=== PATIENT | male | born 1945 | race Caucasian/White ===

== ENCOUNTER 2018-02-17 19:56 | Inpatient (IN) ==
[2018-02-17] MEDS ORDERED: IPRATROPIUM/ALBUTEROL 3 ML AMPUL.NEB NEB ONE ×2 (20:13→20:38)
[2018-02-17] MEDS ORDERED: ACETAMINOPHEN 325 MG TABLET PO ONE (22:13)
[2018-02-17] MEDS ORDERED: 0.9 % SODIUM CHLORIDE 1,000 ML IV ONE (22:24)
[2018-02-17 22:29] LABS: Basophils # (Auto) 0 K/mcL (0.0-0.3); Basophils % (Auto) 0.2 % (0.0-2.0); Eosinophils # (Auto) 0 K/mcL (0.0-0.7); Eosinophils % (Auto) 0.9 % (0.0-7.0); Granulocytes % (Auto) 67.8 % (38.0-78.0); Lymphocytes # (Auto) 1.1 K/mcL (1.5-4.8); Lymphocytes % (Auto) 20.5 % (15.5-49.0); Mean Cell Volume 86.6 fL (80.0-100.0); Mean Corpuscular HGB Conc 34.4 g/dL (31.0-36.0); Monocytes # (Auto) 0.6 K/mcL (0.1-0.9); Monocytes % (Auto) 10.6 % (1.0-12.0); Platelet Count 132 K/mcL (140-440); RBC 5.14 M/mcL (4.50-5.90); Red Cell Distribution Width 12.7 % (11.5-14.5)
[2018-02-17 22:47] LABS: ALT/SGPT 31 U/l (0-40); Albumin 4.4 gm/dL (3.2-5.2); Albumin/Globulin Ratio 1.5 (1.0-2.3); Alkaline Phosphatase 82 U/L (39-117); Blood Urea Nitrogen 15 mg/dl (8-23)
[2018-02-17] MEDS ORDERED: cefTRIAXone 1 GM VIAL IV ONE (23:52)
[2018-02-17] MEDS ORDERED: AZITHROMYCIN 500 MG in DEXTROSE 5% IN WATER 250 ML IV ONE (23:52)
--- NOTE | 2018-02-17 23:53 | Emergency Department Note ---
Fever HPI - General Chief Complaint: Fever Stated Complaint: fever Time Seen by Provider: 02/17/18 20:28 Source: patient Mode of arrival: wheelchair Limitations: no limitations - History of Present Illness HPI Narrative: This pleasant 72-year-old male developed fever and shortness of breath beginning yesterday. Temperature was up to 102.4 early this morning. He has had no exposure to influenza or upper respiratory infections that he is aware of. He has been wheezing quite severely yesterday and today. He has been coughing yesterday and today as well. He uses albuterol intermittently and occasionally but not even monthly. In the last day and a half he has been using it several times a day. REVIEW OF SYSTEMS: Denies sore throat, runny nose, chest pain, abdominal pain, nausea, vomiting, diarrhea, dysuria, anxiety, depression. - Related Data Home Medications Medication Instructions Recorded Confirmed Dutasteride [Avodart] 0.5 mg PO DAILY 02/02/16 01/31/18 Metoprolol Tartrate [Lopressor] 100 mg PO BID 02/02/16 01/31/18 Rosuvastatin Calcium [Crestor] 20 mg PO DAILY 02/02/16 01/31/18 Triamterene/Hydrochlorothiazid 1 each PO DAILY 02/02/16 01/31/18 [Triamterene-Hctz 50-25 mg Cap] amLODIPine/ATORVASTATIN 1 tab PO DAILY 02/02/16 01/31/18 [Amlodipine-Atorvast 10-40 mg] metFORMIN [Glucophage] 500 mg PO BIDCC 02/02/16 01/31/18 Potassium Citrate [Urocit-K] 5 meq PO BID 01/31/18 01/31/18 Allergies Allergy/AdvReac Type Severity Reaction Status Date / Time No Known Drug Allergies Allergy Verified 01/18/18 09:07 Fever PMH - Past Medical History [facility] Narrative: Medical History (Last Updated 02/17/18 @ 23:58 by Luiz French DO) History of urinary calculi (Chronic) Asthma (Chronic) Prediabetes (Chronic) Hyperlipidemia (Chronic) Hypertension, essential (Chronic) Obesity (BMI 30.0-34.9) (Chronic) Ankle fracture (Resolved) Medical history: Denies: cancer, CVA, DVT, hypothyroidism, myocardial infarction , pulmonary embolus, seizures, TIA Psychiatric history: Denies: anxiety, depression - Social History smoking status: Former smoker Alcohol use: Reports: Occasionally (Approximately once a week) Drug use: Reports: none. Denies: marijuana Physical Exam Limitations: no limitations General appearance: alert, in no apparent distress Head: atraumatic, normocephalic Eye: Present: normal appearance, EOMI. Absent: scleral icterus, conjunctival injection Neck: Present: trachea midline. Absent: lymphadenopathy, thyromegaly Chest: Present: symmetric chest wall rise Respiratory: Present: wheezes (Initially had polyphonic expiratory wheezes throughout all lung shell. After 2 doses of DuoNeb, wheezes were rare.). Absent: respiratory distress, stridor, accessory muscle use, prolonged expiratory phase Cardiovascular: Present: regular rate, normal rhythm. Absent: systolic murmur, diastolic murmur Abdominal: Present: soft. Absent: distention, tenderness, guarding, rebound, rigidity, organomegaly, mass Extremities: Absent: pedal edema, pretibial edema, calf tenderness Back: Absent: CVA tenderness (R), CVA tenderness (L), spinous process tenderness Neurological: Present: alert, oriented X3 Psychiatric: Present: normal affect, normal mood Skin: Present: warm, dry Course Course Narrative: 8:29 PM - with significant cough and fever, rule out pneumonia, influenza, etc. Labs and imaging. Vital Signs Temperature 100.4 F H 02/17/18 19:56 Pulse Rate 98 H 02/17/18 19:56 Respiratory Rate 18 02/17/18 19:56 Blood Pressure 177/81 02/17/18 19:56 Pulse Oximetry (%) 95 02/17/18 19:56 Temperature 103.1 F H 02/17/18 22:25 Pulse Rate 101 H 02/17/18 21:37 Respiratory Rate 18 02/17/18 19:56 Blood Pressure 181/85 02/17/18 21:37 Pulse Oximetry (%) 90 02/17/18 21:37 Fever - Lab Data Lab results reviewed: Yes I reviewed the patient's lab results. Result diagrams: 02/17/18 21:10 02/17/18 21:10 Lab Results 02/17/18 02/17/18 02/17/18 Range/Units 21:10 21:10 21:10 WBC 5.5 (4.5-11.0) K/mcL RBC 5.14 (4.50-5.90) M/mcL Hgb 15.3 (13.5-16.5) g/dL Hct 44.5 (41.0-55.0) % MCV 86.6 (80.0-100.0) fL MCH 29.8 (26.0-34.0) pg MCHC 34.4 (31.0-36.0) g/dL RDW 12.7 (11.5-14.5) % Plt Count 132 L (140-440) K/mcL MPV 9.2 (7.4-10.4) fL Gran % 67.8 (38.0-78.0) % Lymph % (Auto) 20.5 (15.5-49.0) % [place] % (Auto) 10.6 (1.0-12.0) % Eos % (Auto) 0.9 (0.0-7.0) % Baso % (Auto) 0.2 (0.0-2.0) % Gran # 3.8 (1.8-8.0) K/mcL Lymph # (Auto) 1.1 L (1.5-4.8) K/mcL [place] # (Auto) 0.6 (0.1-0.9) K/mcL Eos # (Auto) 0 (0.0-0.7) K/mcL Baso # (Auto) 0 (0.0-0.3) K/mcL VBG Lactic Acid 2.7 H (0.5-2.0) mmol/L Sodium 138 (133-145) mmol/L Potassium 3.7 (3.3-5.1) mmol/L Chloride 98 (96-108) mmol/L Carbon Dioxide 23 (22-30) mmol/L Anion Gap 17.0 H (8-16) BUN 15 (8-23) mg/dl Creatinine 1.0 (0.7-1.2) mg/dl GFR Calculation 74 Glucose 149 H (70-105) mg/dL Calcium 9.1 (8.6-10.4) mg/dl Total Bilirubin 0.6 (0.0-1.0) mg/dL AST 27 (0-37) U/l ALT 31 (0-40) U/l Alkaline Phosphatase 82 (39-117) U/L Total Protein 7.4 (5.9-8.4) gm/dL Albumin 4.4 (3.2-5.2) gm/dL Globulin 3.0 (2.2-3.7) gm/dL Albumin/Globulin Ratio 1.5 (1.0-2.3) Procalcitonin (<0.10) ng/mL 02/17/18 Range/Units 21:35 WBC (4.5-11.0) K/mcL RBC (4.50-5.90) M/mcL Hgb (13.5-16.5) g/dL Hct (41.0-55.0) % MCV (80.0-100.0) fL MCH (26.0-34.0) pg MCHC (31.0-36.0) g/dL RDW (11.5-14.5) % Plt Count (140-440) K/mcL MPV (7.4-10.4) fL Gran % (38.0-78.0) % Lymph % (Auto) (15.5-49.0) % [place] % (Auto) (1.0-12.0) % Eos % (Auto) (0.0-7.0) % Baso % (Auto) (0.0-2.0) % Gran # (1.8-8.0) K/mcL Lymph # (Auto) (1.5-4.8) K/mcL [place] # (Auto) (0.1-0.9) K/mcL Eos # (Auto) (0.0-0.7) K/mcL Baso # (Auto) (0.0-0.3) K/mcL VBG Lactic Acid (0.5-2.0) mmol/L Sodium (133-145) mmol/L Potassium (3.3-5.1) mmol/L Chloride (96-108) mmol/L Carbon Dioxide (22-30) mmol/L Anion Gap (8-16) BUN (8-23) mg/dl Creatinine (0.7-1.2) mg/dl GFR Calculation Glucose (70-105) mg/dL Calcium (8.6-10.4) mg/dl Total Bilirubin (0.0-1.0) mg/dL AST (0-37) U/l ALT (0-40) U/l Alkaline Phosphatase (39-117) U/L Total Protein (5.9-8.4) gm/dL Albumin (3.2-5.2) gm/dL Globulin (2.2-3.7) gm/dL Albumin/Globulin Ratio (1.0-2.3) Procalcitonin < 0.05 (<0.10) ng/mL - Radiology Data Radiology results reviewed: Yes I reviewed the patient's radiology results. Disposition Pt seen by [facility]/PA only: No Clinical Impression: Hypoxia RML pneumonia Qualifiers: Pneumonia type: due to unspecified organism Qualified Code(s): J18.1 - Lobar pneumonia, unspecified organism Fever Qualifiers: Fever type: due to other condition Qualified Code(s): R50.81 - Fever presenting with conditions classified elsewhere Asthma exacerbation Qualifiers: Asthma severity: moderate Asthma persistence: persistent Qualified Code(s): J45.41 - Moderate persistent asthma with (acute) exacerbation Summary: 11:47 PM - With patient demonstrating 89% on room air while awake, and a temperature of 103.1 degrees, and probable right middle lobe developing pneumonia, I spoke with hospitalist, Dr. Akers, who kindly accepts this patient for inpatient additional treatment. Patient's white count was 5.5 without a shift. Lactic acid, however, was elevated at 2.7. Rocephin 1 g and azithromycin 500 mg ordered IV. Disposition: Xfer As Inpt ([facility]) Referrals: Doni Amezcua MD [Primary Care Provider] -
[2018-02-17] MEDS ORDERED: methylPREDNISolone SOD SUCC 125 MG/2 ML VIAL IV ONE (23:57)
--- NOTE | 2018-02-18 00:36 | Internal Med History&Physical ---
Medical - H&P: HPI Patient information: Note initiated : 02/18/18 at 12:28 am Service Date, if different from initiated Date: [] Patient: Jak Flood 72 y/o M admitted on for fever. Chief Complaint: [] History of present illness: Mr. Flood is a 72 year old M male presents to the emergency room today for evaluation of fever shortness of breath and cough. The patient notes that he has been experiencing cough with mildly productive sputum, shortness of breath wheezing and fever that has been going on for the last 3 days. There is no aggravating or relieving factors, the patient has been using his inhalers for asthma. The patient's condition has worsened and therefore he presented to the emergency room for further evaluation. Fever is associated with chills and Rigors which also have gotten worse. Pt was short of breath with minimal activity and hence came to the ER for further evaluation The patient denies any sick contacts, he admits to malaise and weakness, denies any runny nose or watery eyes. He denies any headaches changes in vision difficulty in swallowing difficulty in hearing denies any chest pain denies any nausea vomiting abdominal pain diarrhea constipation denies any urinary complaints, denies any new joint pain skin rashes depression anxiety denies any bleeding disorders or bleeding issues. In the emergency room patient had a fever of 103.1, heart rate of 98, blood pressure 177 x 81 and saturating around 89-90% on 2 L of oxygen. Labs show a normal WBC count at 5.5 with a normal neutrophil count, hemoglobin 15.5 platelets 132 sodium 138 potassium 3.7 bicarbonate 23 creatinine 1.0 glucose is 149 pro calcitonin is less than 0.05 and lactic acid mildly elevated 2.7. Chest x-ray done shows possible right basilar pneumonia versus atelectasis. The patient was given duo nebs, IV fluids Rocephin and azithromycin after blood cultures were drawn. The patient is being admitted to the hospital for further management influenza test done in the emergency room was interpreted as negative All systems: reviewed and no additional remarkable complaints except as stated ( As per HPI rest negative) Medical - H&P: PMH Medical history: Medical History (Last Updated 02/17/18 @ 23:58 by Luiz French DO) History of urinary calculi (Chronic) Asthma (Chronic) Prediabetes (Chronic) Hyperlipidemia (Chronic) Hypertension, essential (Chronic) Obesity (BMI 30.0-34.9) (Chronic) Ankle fracture (Resolved) Surgical history: History of foot fracture Appendectomy Pertinent family history: Mother with history of diabetes mother with history of stroke Social history: Lives with , History of smoking quit in 73 Denies any alcohol abuse or recreational drug use Medical - H&P: Meds Home Medications Medication Instructions Recorded Confirmed Type Dutasteride [Avodart] 0.5 mg PO DAILY 02/02/16 02/18/18 History Metoprolol Tartrate [Lopressor] 100 mg PO BID 02/02/16 02/18/18 History Rosuvastatin Calcium [Crestor] 20 mg PO DAILY 02/02/16 02/18/18 History Triamterene/Hydrochlorothiazid 1 each PO DAILY 02/02/16 02/18/18 History [Triamterene-Hctz 50-25 mg Cap] amLODIPine/ATORVASTATIN 1 tab PO DAILY 02/02/16 02/18/18 History [Amlodipine-Atorvast 10-40 mg] metFORMIN [Glucophage] 500 mg PO BIDCC 02/02/16 02/18/18 History Potassium Citrate [Urocit-K] 5 meq PO BID 01/31/18 02/18/18 History Esomeprazole Magnesium [Nexium] 40 mg PO DAILY 02/18/18 02/18/18 History metFORMIN HCL [Metformin HCl ER] 500 mg PO ONCE 02/18/18 02/18/18 History Allergies Allergy/AdvReac Type Severity Reaction Status Date / Time No Known Drug Allergies Allergy Verified 01/18/18 09:07 Medical - H&P: Exam - Constitutional Vitals: Temp Pulse Resp BP Pulse Ox 103.1 F H 101 H 18 181/85 90 02/17/18 22:25 02/17/18 21:37 02/17/18 19:56 02/17/18 21:37 02/17/18 21:37 Exam: GENERAL: The patient is a well-developed, well-nourished in no apparent distress. Is alert and oriented x3. VITAL SIGNS: Reviewed and as noted elsewhere. HEENT: Head is normocephalic and atraumatic. Extraocular muscles are intact. Pupils are equal, round, and reactive to light. Nares appeared normal. Mouth appears any without lesions. Mucous membranes are moist. NECK: Normal to inspection, Supple, No lymphadenopathy or thyromegaly. LUNGS: Air entry equal on both sides, mild bibasilar inspiratory crackles that cleared on deep inspiration, mild expiratory wheezing noted patient is able to speak full sentences no accessory muscle used HEART: Regular rate and rhythm normal, S1 and S2 heard, no Gallop, S3 or Rub Noted, No Gross murmur heard. ABDOMEN: Soft, nontender, and nondistended. Positive bowel sounds. No hepatosplenomegaly was noted. EXTREMITIES: No cyanosis, clubbing, rash, lesions or edema. NEUROLOGIC: Cranial nerves II through XII are grossly intact. Motor and Sensory System Grossly Intact PSYCHIATRIC: Normal affect, Normal Mood. Appropriate Behavior. SKIN: No ulceration or wounds noted, No jaundice, No rash noted. Medical - H&P: Reslt - Labs CBC & Chem 7: 02/17/18 21:10 02/17/18 21:10 Labs: Short CBC 02/17/18 Range/Units 21:10 WBC 5.5 (4.5-11.0) K/mcL Hgb 15.3 (13.5-16.5) g/dL Hct 44.5 (41.0-55.0) % Plt Count 132 L (140-440) K/mcL BMP 02/17/18 21:10 Sodium 138 Potassium 3.7 Chloride 98 Carbon Dioxide 23 BUN 15 Creatinine 1.0 Glucose 149 H Calcium 9.1 Liver Function 02/17/18 Range/Units 21:10 Total Bilirubin 0.6 (0.0-1.0) mg/dL AST 27 (0-37) U/l ALT 31 (0-40) U/l Alkaline Phosphatase 82 (39-117) U/L Albumin 4.4 (3.2-5.2) gm/dL Medical - H&P: A/P - Narrative A/P Narrative: A/P Acute Hypoxic Respiratory Failure -Oxygen to maintain oxygen level > 90% Pneumonia -Likely viral, but will cover with azithromycin and rocephin. Influenza poc is neg in ER, send resp viral panel. start on tamiflu for now HTN -BP elevated, resume home medications, use prn clonidine for very high bp Acute Asthma exacerbation -mild wheeze on my exam, IV steroids tonight, and then po prednisone from AM -Duonebs q4hrs Prediabetes -Hold metformin, if glucose elevated, will add SSI insulin for glucose control Lactic acidosis -IV fluids for now, trend lactate HLD -Continue home dose of statin Obesity -outpatient management. DVT hep sq Full code Regular Diet
[2018-02-18] MEDS ORDERED: methylPREDNISolone SOD SUCC 125 MG/2 ML VIAL IV ONE (00:38)
[2018-02-18] MEDS ORDERED: ACETAMINOPHEN 325 MG TABLET PO PRN (01:05)
[2018-02-18] MEDS ORDERED: ONDANSETRON 4 MG/2 ML VIAL IV PRN (01:05)
[2018-02-18] MEDS ORDERED: NALOXONE HCL 0.4 MG/ML VIAL IV PRN (01:05)
[2018-02-18] MEDS ORDERED: oxyCODONE HCL 5 MG TABLET PO PRN (01:05)
[2018-02-18] MEDS ORDERED: IBUPROFEN 600 MG TABLET PO PRN (01:05)
[2018-02-18] MEDS ORDERED: cloNIDine HCL 0.1 MG TABLET PO PRN (01:05)
[2018-02-18] MEDS ORDERED: 0.9 % SODIUM CHLORIDE 1,000 ML IV ONE ×2 (01:05)
[2018-02-18] MEDS: OSELTAMIVIR PHOSPHATE 75 MG CAPSULE PO SCH ×3 (01:44→21:15)
[2018-02-18] MEDS ORDERED: IPRATROPIUM/ALBUTEROL 3 ML AMPUL.NEB NEB ONE (02:07)
[2018-02-18] MEDS: IPRATROPIUM/ALBUTEROL 3 ML AMPUL.NEB NEB SCH ×6 (02:10→22:36)
--- NOTE | 2018-02-18 05:06 | XRay Report ---
CLINICAL INFORMATION: cough, wheeze, fever COMPARISON: 12/06/2016 and 01/27/2010 FINDINGS: Heart is borderline enlarged. Mediastinum is unremarkable. Pulmonary vessels are at upper limits of normal in caliber. Mild bibasilar atelectasis noted - lungs otherwise clear. No effusion. Mild degenerative changes seen in the mid lower thoracic spine. Stable IMPRESSION: Minor bibasilar atelectasis Interpreted and Authenticated by: Jong Ferrari 02/18/18
[2018-02-18 05:16] LABS: Basophils # (Auto) 0 K/mcL (0.0-0.3); Basophils % (Auto) 0.2 % (0.0-2.0); Eosinophils # (Auto) 0 K/mcL (0.0-0.7); Eosinophils % (Auto) 0 % (0.0-7.0); Granulocytes % (Auto) 88.5 % (38.0-78.0); Lymphocytes # (Auto) 0.5 K/mcL (1.5-4.8); Lymphocytes % (Auto) 9.9 % (15.5-49.0); Mean Cell Volume 89.1 fL (80.0-100.0); Mean Corpuscular HGB Conc 34.5 g/dL (31.0-36.0); Monocytes # (Auto) 0.1 K/mcL (0.1-0.9); Monocytes % (Auto) 1.4 % (1.0-12.0); Platelet Count 119 K/mcL (140-440); RBC 4.61 M/mcL (4.50-5.90); Red Cell Distribution Width 13.4 % (11.5-14.5)
[2018-02-18 05:40] LABS: ALT/SGPT 30 U/l (0-40); Albumin 3.7 gm/dL (3.2-5.2); Albumin/Globulin Ratio 1.3 (1.0-2.3); Alkaline Phosphatase 72 U/L (39-117); Bilirubin,Direct < 0.2 mg/dL (0.0-0.3); Blood Urea Nitrogen 14 mg/dl (8-23); Gamma Glutamyl Transpeptidase 50 U/L (8-61); Uric Acid 4.5 mg/dL (2.5-8.0)
[2018-02-18] MEDS: 0.9 % SODIUM CHLORIDE 10 ML SYRINGE IV SCH ×3 (06:35→21:15)
[2018-02-18] MEDS: DUTASTERIDE 0.5 MG CAPSULE PO SCH (08:36)
[2018-02-18] MEDS: PANTOPRAZOLE 40 MG TABLET PO SCH (08:37)
[2018-02-18] MEDS: predniSONE 20 MG TABLET PO SCH (08:37)
[2018-02-18] MEDS: TRIAMTERENE/HYDROCHLOROTHIAZID 1 TABLET PO SCH (08:37)
[2018-02-18] MEDS: METOPROLOL TARTRATE 50 MG TABLET PO SCH ×2 (08:37→21:15)
[2018-02-18] MEDS: HEPARIN 5,000 UNIT/ML VIAL SQ SCH ×2 (08:37→21:15)
[2018-02-18] MEDS: POTASSIUM CHLORIDE 10 MEQ TABLET PO SCH ×2 (08:37→08:40)
[2018-02-18] MEDS: amLODIPine 10 MG TABLET PO SCH (08:37)
[2018-02-18] MEDS ORDERED: DEXTROSE 50% 50 ML VIAL IV PRN (09:43)
[2018-02-18] MEDS ORDERED: DEXTROSE 31 GM ORAL.SUSP PO PRN (09:43)
[2018-02-18] MEDS: INSULIN LISPRO 1 UNIT/0.01 ML UNIT SQ SCH ×3 (11:46→21:15)
[2018-02-18] MEDS: POTASSIUM CITRATE 15 MEQ PO SCH ×2 (11:46→21:15)
--- NOTE | 2018-02-18 13:15 | Internal Med Progress Note ---
Medical - PN: Subj Patient information: Note initiated : 02/18/18 at 1:10 pm Service Date, if different from initiated Date: [] Patient: Jak Flood 72 y/o M admitted on 02/18/18 for fever. Chief Complaint: [] Interval history: Mr. Flood is a 72 year old M male presents to the emergency room today for evaluation of fever shortness of breath and cough. The patient notes that he has been experiencing cough with mildly productive sputum, shortness of breath wheezing and fever that has been going on for the last 3 days. There is no aggravating or relieving factors, the patient has been using his inhalers for asthma. The patient's condition has worsened and therefore he presented to the emergency room for further evaluation. Fever is associated with chills and Rigors which also have gotten worse. Pt was short of breath with minimal activity and hence came to the ER for further evaluation The patient denies any sick contacts, he admits to malaise and weakness, denies any runny nose or watery eyes. He denies any headaches changes in vision difficulty in swallowing difficulty in hearing denies any chest pain denies any nausea vomiting abdominal pain diarrhea constipation denies any urinary complaints, denies any new joint pain skin rashes depression anxiety denies any bleeding disorders or bleeding issues. In the emergency room patient had a fever of 103.1, heart rate of 98, blood pressure 177 x 81 and saturating around 89-90% on 2 L of oxygen. Labs show a normal WBC count at 5.5 with a normal neutrophil count, hemoglobin 15.5 platelets 132 sodium 138 potassium 3.7 bicarbonate 23 creatinine 1.0 glucose is 149 pro calcitonin is less than 0.05 and lactic acid mildly elevated 2.7. Chest x-ray done shows possible right basilar pneumonia versus atelectasis. The patient was given duo nebs, IV fluids Rocephin and azithromycin after blood cultures were drawn. The patient is being admitted to the hospital for further management influenza test done in the emergency room was interpreted as negative 02/19 - Constitutional Vitals: Vital Signs Temp Pulse Resp BP Pulse Ox 98.6 F 93 H 22 138/76 92 02/18/18 11:46 02/18/18 12:32 02/18/18 12:32 02/18/18 11:46 02/18/18 11:46 Period Temp Pulse Resp BP Sys/[place] Pulse Ox Last 24 Hr 97.5 F-103.1 F 87-107 16-26 126-181/75-98 86-96 Intake and Output 02/17/18 02/18/18 02/18/18 21:59 05:59 13:59 Intake Total 3400 / 3400 1080 / 1080 Output Total 200 / 200 1600 / 1600 Balance 3200 / 3200 -520 / -520 Weight 97.522 kg 98.43 kg Intake & Output: Intake & Output 02/17/18 02/18/18 02/18/18 21:59 05:59 13:59 Intake Total 3400 / 3400 1080 / 1080 Output Total 200 / 200 1600 / 1600 Balance 3200 / 3200 -520 / -520 Weight 97.522 kg 98.43 kg Intake: IV 3250 / 3250 Sodium Chloride 0.9% 1,000 ml @ 3000 / 3000 Wide Open IV BOLUS ONE Rx#: [id number] Zithromax 500 mg In Dextrose 5% 250 / 250 in Water 250 ml @ 250 mls/hr IV ONCE ONE Rx#:[id number] Oral 150 / 150 1080 / 1080 Output: Void Amount 200 / 200 1600 / 1600 Other: Meal sandwich & jello Lunch Percent of Meal Consumed 100% 100% Feeding Ability Independent Urine Appearance Clear Clear Urine Color Dark Yellow Straw Urine Odor Normal # Bowel Movements 1 Exam: General: Alert, Awake, Eyes/N/T: EOMI, Head/Neck: neck supple, CV: RRR, No murmurs, normal s1/s2 Pulm: mild bibase rales, mild exp wheeze b/l Abd: soft, nontender, +BS x4 Ext: no clubbing/cyanosis/edema Neuro: Alert, no focal deficits, moves all extremities, Skin: warm/dry Medical - PN: Obj Da - Labs CBC & Chem 7: 02/18/18 04:15 02/18/18 04:15 Labs: Abnormal Lab Results 02/18/18 02/18/18 02/17/18 04:15 04:15 21:10 Plt Count 119 L Gran % 88.5 H Lymph % (Auto) 9.9 L Lymph # (Auto) 0.5 L VBG Lactic Acid 2.7 H Carbon Dioxide 21 L Anion Gap Glucose 268 H Calcium 8.1 L 02/17/18 02/17/18 21:10 21:10 Plt Count 132 L Gran % Lymph % (Auto) Lymph # (Auto) 1.1 L VBG Lactic Acid Carbon Dioxide Anion Gap 17.0 H Glucose 149 H Calcium Meds: Medications Acetaminophen (Tylenol) 650 mg PO Q6HP PRN PRN Reason: PAIN/FEVER > 101 Albuterol/Ipratropium (Duoneb) 3 ml NEB Q4HRT [facility] Last Admin: 02/18/18 12:31 Dose: 3 ml Amlodipine Besylate (Norvasc) 10 mg PO DAILY [facility] Last Admin: 02/18/18 08:37 Dose: 10 mg Atorvastatin Calcium (Lipitor) 40 mg PO HS [facility] Azithromycin (Zithromax) 250 mg PO DAILY [facility] Stop: 02/21/18 09:01 Ceftriaxone Sodium (Rocephin) 1 gm IV DAILY [facility] Clonidine HCl (Catapres) 0.1 mg PO Q4HP PRN PRN Reason: Hypertension Dextrose (Dextrose 50%) 0 ml IV UD PRN PRN Reason: Hypoglycemia Diagnostic Test (Pha) (Accu-Chek) 1 each FS [facility] Last Admin: 02/18/18 11:09 Dose: 1 each Dutasteride (Avodart) 0.5 mg PO DAILY [facility] Last Admin: 02/18/18 08:36 Dose: 0.5 mg Glucose (Insta-Glucose) 15 gm PO PRN PRN PRN Reason: Hypoglycemia Heparin Sodium (Porcine) (Heparin) 5,000 unit SQ Q12 [facility] Last Admin: 02/18/18 08:37 Dose: 5,000 unit Ibuprofen (Motrin) 600 mg PO QIDP PRN PRN Reason: PAIN/FEVER > 101 Insulin Human Lispro (Humalog) 0 unit SQ [facility]; Protocol Last Admin: 02/18/18 11:46 Dose: 6 units Metoprolol Tartrate (Lopressor) 100 mg PO BID [facility] Last Admin: 02/18/18 08:37 Dose: 100 mg Naloxone HCl (Narcan) 0.1 mg IV Q2MIN PRN PRN Reason: Opiate Reversal Ondansetron HCl (Zofran) 4 mg IV Q6HP PRN PRN Reason: Nausea And Vomiting Oseltamivir Phosphate (Tamiflu) 75 mg PO BID [facility] Last Admin: 02/18/18 08:37 Dose: 75 mg Oxycodone HCl (Roxicodone) 5 mg PO Q4HP PRN PRN Reason: Severe Pain Pantoprazole Sodium (Protonix) 40 mg PO QAMAC [facility] Last Admin: 02/18/18 08:37 Dose: 40 mg Potassium Citrate 15 (Meq Tab.Xl.24h) 1 dose PO BID [facility] Last Admin: 02/18/18 11:46 Dose: 1 dose Prednisone (Prednisone) 40 mg PO QAC [facility] Last Admin: 02/18/18 08:37 Dose: 40 mg Sodium Chloride (Saline Flush) 10 ml IV Q8 [facility] Last Admin: 02/18/18 06:35 Dose: 10 ml Triamterene/HCTZ (Maxzide 25) 1 tab PO DAILY [facility] Last Admin: 02/18/18 08:37 Dose: 1 tab Medical - PN: A/P - Time Spent With Patient Total time spent is greater than 50% in coordination of care (as documented) at patient's floor/unit and/or counseling patient: - Narrative A/P Narrative: A: *Acute Hypoxic Respiratory Failure *Acute Asthma exacerbation: *Pneumonia: Likely viral, but will cover with azithromycin and rocephin for now -Influenza poc is neg in ER, send resp viral panel. start on tamiflu for now *HTN: BP elevated, *Prediabetes: Hold metformin, if glucose elevated, will add SSI insulin for glucose control *Lactic acidosis: resolved *Obesity P: -Oxygen to maintain oxygen level > 90% -tamiflu -IV steroids to PO, duonebs -resume home BP medications, use prn clonidine for very high bp - - -ppx: heparin Medical - PN: Qual - VTE Deep Vein Thrombosis/Pulmonary Embolism Present on Admission: No
[2018-02-18] MEDS: AZITHROMYCIN 250 MG TABLET PO SCH (14:58)
[2018-02-18] MEDS: cefTRIAXone 1 GM VIAL IV SCH (14:58)
[2018-02-18] MEDS: ATORVASTATIN 20 MG TABLET PO SCH (21:15)
[2018-02-19] MEDS: IPRATROPIUM/ALBUTEROL 3 ML AMPUL.NEB NEB SCH ×6 (03:47→22:25)
[2018-02-19 05:44] LABS: ALT/SGPT 28 U/l (0-40); Albumin/Globulin Ratio 1.4 (1.0-2.3); Alkaline Phosphatase 76 U/L (39-117); Bilirubin,Direct < 0.2 mg/dL (0.0-0.3); Blood Urea Nitrogen 21 mg/dl (8-23); Gamma Glutamyl Transpeptidase 49 U/L (8-61); Uric Acid 4.5 mg/dL (2.5-8.0)
[2018-02-19 06:22] LABS: Basophils # (Auto) 0 K/mcL (0.0-0.3); Basophils % (Auto) 0.3 % (0.0-2.0); Eosinophils # (Auto) 0 K/mcL (0.0-0.7); Eosinophils % (Auto) 0.3 % (0.0-7.0); Granulocytes % (Auto) 68.2 % (38.0-78.0); Lymphocytes % (Auto) 20.1 % (15.5-49.0); Mean Cell Volume 89.5 fL (80.0-100.0); Mean Corpuscular HGB Conc 33.5 g/dL (31.0-36.0); Monocytes # (Auto) 0.6 K/mcL (0.1-0.9); Monocytes % (Auto) 11.1 % (1.0-12.0); Platelet Count 142 K/mcL (140-440); RBC 4.63 M/mcL (4.50-5.90); Red Cell Distribution Width 13.2 % (11.5-14.5)
--- NOTE | 2018-02-19 06:59 | Internal Med Progress Note ---
Medical - PN: Subj Patient information: Note initiated : 02/19/18 at 6:54 am Service Date, if different from initiated Date: [] Patient: Jak Flood 72 y/o M admitted on 02/18/18 for fever. Chief Complaint: [] Interval history: Mr. Flood is a 72 year old M male presents to the emergency room today for evaluation of fever shortness of breath and cough. The patient notes that he has been experiencing cough with mildly productive sputum, shortness of breath wheezing and fever that has been going on for the last 3 days. There is no aggravating or relieving factors, the patient has been using his inhalers for asthma. The patient's condition has worsened and therefore he presented to the emergency room for further evaluation. Fever is associated with chills and Rigors which also have gotten worse. Pt was short of breath with minimal activity and hence came to the ER for further evaluation The patient denies any sick contacts, he admits to malaise and weakness, denies any runny nose or watery eyes. He denies any headaches changes in vision difficulty in swallowing difficulty in hearing denies any chest pain denies any nausea vomiting abdominal pain diarrhea constipation denies any urinary complaints, denies any new joint pain skin rashes depression anxiety denies any bleeding disorders or bleeding issues. In the emergency room patient had a fever of 103.1, heart rate of 98, blood pressure 177 x 81 and saturating around 89-90% on 2 L of oxygen. Labs show a normal WBC count at 5.5 with a normal neutrophil count, hemoglobin 15.5 platelets 132 sodium 138 potassium 3.7 bicarbonate 23 creatinine 1.0 glucose is 149 pro calcitonin is less than 0.05 and lactic acid mildly elevated 2.7. Chest x-ray done shows possible right basilar pneumonia versus atelectasis. The patient was given duo nebs, IV fluids Rocephin and azithromycin after blood cultures were drawn. The patient is being admitted to the hospital for further management influenza test done in the emergency room was interpreted as negative 02/19 Cough and shortness of breath both improved today. Feeling better overall. Slept well. Review of Systems: denies headache/fever/chills/nausea/vomiting/chest or abdominal pain/diarrhea. Otherwise see above. - Constitutional Vitals: Vital Signs Temp Pulse Resp BP Pulse Ox 97.6 F 78 16 143/84 91 02/19/18 03:50 02/19/18 03:50 02/19/18 03:50 02/19/18 03:50 02/19/18 03:50 Period Temp Pulse Resp BP Sys/[place] Pulse Ox Last 24 Hr 97.3 F-98.6 F 78-93 16-24 127-143/74-84 86-95 Intake and Output 02/18/18 02/19/18 02/19/18 21:59 05:59 13:59 Intake Total 360 / 360 150 / 150 Output Total 550 / 550 475 / 475 Balance -190 / -190 -325 / -325 Weight 100.924 kg Intake & Output: Intake & Output 02/18/18 02/19/18 02/19/18 21:59 05:59 13:59 Intake Total 360 / 360 150 / 150 Output Total 550 / 550 475 / 475 Balance -190 / -190 -325 / -325 Weight 100.924 kg Intake: Oral 360 / 360 150 / 150 Output: Void Amount 550 / 550 475 / 475 Other: Meal Dinner Percent of Meal Consumed 100% Urine Appearance Clear Urine Color Bright Yellow Exam: General: Alert, Awake, Eyes/N/T: EOMI, Head/Neck: neck supple, CV: RRR, No murmurs, normal s1/s2 Pulm: minimal bibase rales, mild exp wheeze b/l Abd: soft, nontender, +BS x4 Ext: no clubbing/cyanosis/edema Neuro: Alert, no focal deficits, moves all extremities, Skin: warm/dry Medical - PN: Obj Da - Labs CBC & Chem 7: 02/19/18 04:10 02/19/18 04:10 Labs: Abnormal Lab Results 02/19/18 02/19/18 02/18/18 04:10 04:10 04:15 Plt Count Gran % Lymph % (Auto) Lymph # (Auto) 1.0 L VBG Lactic Acid Carbon Dioxide 21 L 21 L Anion Gap Glucose 262 H 268 H Calcium 8.1 L 02/18/18 02/17/18 02/17/18 04:15 21:10 21:10 Plt Count 119 L Gran % 88.5 H Lymph % (Auto) 9.9 L Lymph # (Auto) 0.5 L VBG Lactic Acid 2.7 H Carbon Dioxide Anion Gap 17.0 H Glucose 149 H Calcium 02/17/18 21:10 Plt Count 132 L Gran % Lymph % (Auto) Lymph # (Auto) 1.1 L VBG Lactic Acid Carbon Dioxide Anion Gap Glucose Calcium Meds: Medications Acetaminophen (Tylenol) 650 mg PO Q6HP PRN PRN Reason: PAIN/FEVER > 101 Albuterol/Ipratropium (Duoneb) 3 ml NEB Q4HRT [facility] Last Admin: 02/19/18 03:47 Dose: 3 ml Amlodipine Besylate (Norvasc) 10 mg PO DAILY [facility] Last Admin: 02/18/18 08:37 Dose: 10 mg Atorvastatin Calcium (Lipitor) 40 mg PO HS [facility] Last Admin: 02/18/18 21:15 Dose: 40 mg Azithromycin (Zithromax) 250 mg PO DAILY [facility] Stop: 02/21/18 09:01 Last Admin: 02/18/18 14:58 Dose: 250 mg Ceftriaxone Sodium (Rocephin) 1 gm IV DAILY [facility] Last Admin: 02/18/18 14:58 Dose: 1 gm Clonidine HCl (Catapres) 0.1 mg PO Q4HP PRN PRN Reason: Hypertension Dextrose (Dextrose 50%) 0 ml IV UD PRN PRN Reason: Hypoglycemia Diagnostic Test (Pha) (Accu-Chek) 1 each FS ACHS [facility] Last Admin: 02/18/18 21:15 Dose: 1 each Dutasteride (Avodart) 0.5 mg PO DAILY [facility] Last Admin: 02/18/18 08:36 Dose: 0.5 mg Glucose (Insta-Glucose) 15 gm PO PRN PRN PRN Reason: Hypoglycemia Heparin Sodium (Porcine) (Heparin) 5,000 unit SQ Q12 [facility] Last Admin: 02/18/18 21:15 Dose: 5,000 unit Ibuprofen (Motrin) 600 mg PO QIDP PRN PRN Reason: PAIN/FEVER > 101 Insulin Human Lispro (Humalog) 0 unit SQ ACHS [facility]; Protocol Last Admin: 02/18/18 21:15 Dose: 6 units Metoprolol Tartrate (Lopressor) 100 mg PO BID [facility] Last Admin: 02/18/18 21:15 Dose: 100 mg Naloxone HCl (Narcan) 0.1 mg IV Q2MIN PRN PRN Reason: Opiate Reversal Ondansetron HCl (Zofran) 4 mg IV Q6HP PRN PRN Reason: Nausea And Vomiting Oseltamivir Phosphate (Tamiflu) 75 mg PO BID [facility] Last Admin: 02/18/18 21:15 Dose: 75 mg Oxycodone HCl (Roxicodone) 5 mg PO Q4HP PRN PRN Reason: Severe Pain [facility] Admin: 02/18/18 08:37 Dose: 40 mg Potassium Citrate 15 (Meq Tab.Xl.24h) 1 dose PO BID [facility] Last Admin: 02/18/18 21:15 Dose: 1 dose Prednisone (Prednisone) 40 mg PO [facility] Last Admin: 02/18/18 08:37 Dose: 40 mg Sodium Chloride (Saline Flush) 10 ml IV Q8 [facility] Last Admin: 02/18/18 21:15 Dose: 10 ml Triamterene/HCTZ (Maxzide 25) 1 tab PO DAILY [facility] Last Admin: 02/18/18 08:37 Dose: 1 tab Medical - PN: A/P - Time Spent With Patient Total time spent is greater than 50% in coordination of care (as documented) at patient's floor/unit and/or counseling patient: - Narrative A/P Narrative: A: *Acute Hypoxic Respiratory Failure: -switched to room air this morning *Acute Asthma exacerbation: improving *Pneumonia: Likely viral, but will cover with azithromycin and rocephin for now -Influenza poc is neg in ER, resp viral panel neg. start on tamiflu for now *HTN: *Prediabetes: A1c 6.3 *Lactic acidosis: resolved *Obesity: P: -Oxygen to maintain oxygen level > 90% -tamiflu -IV steroids to PO prednisone 40, duonebs -resume home BP medications(norvasc/lopressor), use prn clonidine for very high bp -SSI, hold home metformin for now -ppx: heparin Medical - PN: Qual - VTE Deep Vein Thrombosis/Pulmonary Embolism Present on Admission: No
[2018-02-19] MEDS: 0.9 % SODIUM CHLORIDE 10 ML SYRINGE IV SCH ×3 (07:40→20:00)
[2018-02-19] MEDS: PANTOPRAZOLE 40 MG TABLET PO SCH (07:40)
[2018-02-19 08:03] LABS: Hemoglobin A1C 6.3 % HGB (4.0-6.0)
[2018-02-19] MEDS: AZITHROMYCIN 250 MG TABLET PO SCH (08:23)
[2018-02-19] MEDS: TRIAMTERENE/HYDROCHLOROTHIAZID 1 TABLET PO SCH (08:23)
[2018-02-19] MEDS: DUTASTERIDE 0.5 MG CAPSULE PO SCH (08:23)
[2018-02-19] MEDS: amLODIPine 10 MG TABLET PO SCH (08:23)
[2018-02-19] MEDS: predniSONE 20 MG TABLET PO SCH (08:23)
[2018-02-19] MEDS: OSELTAMIVIR PHOSPHATE 75 MG CAPSULE PO SCH ×2 (08:23→19:56)
[2018-02-19] MEDS: METOPROLOL TARTRATE 50 MG TABLET PO SCH ×2 (08:24→19:56)
[2018-02-19] MEDS: POTASSIUM CITRATE 15 MEQ PO SCH ×2 (08:24→19:56)
[2018-02-19] MEDS: INSULIN LISPRO 1 UNIT/0.01 ML UNIT SQ SCH ×4 (08:26→20:09)
[2018-02-19] MEDS: HEPARIN 5,000 UNIT/ML VIAL SQ SCH ×2 (08:27→19:55)
[2018-02-19] MEDS: cefTRIAXone 1 GM VIAL IV SCH (08:27)
--- NOTE | 2018-02-19 11:03 | Discharge Summary ---
Medical - DS: Prov Patient information: Note initiated : 02/19/18 at 10:59 am Service Date, if different from initiated Date: [] Patient: Jak Flood 72 y/o M admitted on 02/18/18 for fever. Chief Complaint: [] Date of admission: 02/18/18 01:00 Discharge date: 02/20/18 Primary care physician: Doni Amezcua Medical - DS: Meds - Discharge Medications Prescriptions: predniSONE [Prednisone] 40 mg PO [facility] #1 tab Active and Home Medications: Home Medications Dutasteride [Avodart] 0.5 mg PO DAILY 02/02/16 [History Confirmed 02/18/18 Last Taken 01/31/18 05:30] Metoprolol Tartrate [Lopressor] 100 mg PO BID 02/02/16 [History Confirmed Last Taken 01/31/18 05:30] Rosuvastatin Calcium [Crestor] 20 mg PO DAILY 02/02/16 [History Confirmed Last Taken 01/31/18 05:30] Triamterene/Hydrochlorothiazid [Triamterene-Hctz 50-25 mg Cap] 1 each PO DAILY 02/02/16 [History Confirmed 02/18/18 Last Taken 01/31/18 05:30] amLODIPine/ATORVASTATIN [Amlodipine-Atorvast 10-40 mg] 1 tab PO DAILY 02/02/16 [ History Confirmed 02/18/18 Last Taken 01/31/18 05:30] metFORMIN [Glucophage] 500 mg PO BIDCC 02/02/16 [History Confirmed 02/18/18 Last Taken 01/31/18 05:30] Potassium Citrate [Urocit-K] 15 meq PO BID 01/31/18 [History Confirmed 02/18/18 Last Taken 01/31/18 05:30] Esomeprazole Magnesium [Nexium] 40 mg PO DAILY 02/18/18 [History Confirmed 02/18 Last Taken Unknown] metFORMIN HCL [Metformin HCl ER] 500 mg PO ONCE 02/18/18 [History Confirmed Last Taken Unknown] Medical - DS: Hosp Hospital course: Mr. Flood is a 72 year old M Mr. Flood is a 72 year old M male presents to the emergency room today for evaluation of fever shortness of breath and cough. The patient notes that he has been experiencing cough with mildly productive sputum, shortness of breath wheezing and fever that has been going on for the last 3 days. There is no aggravating or relieving factors, the patient has been using his inhalers for asthma. The patient's condition has worsened and therefore he presented to the emergency room for further evaluation. Fever is associated with chills and Rigors which also have gotten worse. Pt was short of breath with minimal activity and hence came to the ER for further evaluation The patient denies any sick contacts, he admits to malaise and weakness, denies any runny nose or watery eyes. He denies any headaches changes in vision difficulty in swallowing difficulty in hearing denies any chest pain denies any nausea vomiting abdominal pain diarrhea constipation denies any urinary complaints, denies any new joint pain skin rashes depression anxiety denies any bleeding disorders or bleeding issues. In the emergency room patient had a fever of 103.1, heart rate of 98, blood pressure 177 x 81 and saturating around 89-90% on 2 L of oxygen. Labs show a normal WBC count at 5.5 with a normal neutrophil count, hemoglobin 15.5 platelets 132 sodium 138 potassium 3.7 bicarbonate 23 creatinine 1.0 glucose is 149 pro calcitonin is less than 0.05 and lactic acid mildly elevated 2.7. Chest x-ray done shows possible right basilar pneumonia versus atelectasis. The patient was given duo nebs, IV fluids Rocephin and azithromycin after blood cultures were drawn. The patient is being admitted to the hospital for further management influenza test done in the emergency room was interpreted as negative 02/19 Cough and shortness of breath both improved today. Feeling better overall. Slept well. 02/20 Still has a little bit of cough and wheezing but otherwise feeling much better, no shortness of breath. Stable for discharge Discharge diagnosis: Viral pneumonia acute asthma exacerbation hypoxic respiratory failure - Time Spent with Patient Total time spent providing and/or coordinating discharge services: Greater than 30 minutes Medical - DS: Exam - Constitutional Vitals: Vital Signs Temp Pulse Pulse Resp BP Pulse Ox 02/19/18 07:51 73 18 02/19/18 06:58 97.2 F 79 18 142/70 92 02/19/18 03:50 97.6 F 78 16 143/84 91 02/18/18 23:40 97.8 F 84 16 127/74 95 02/18/18 22:36 91 H 20 12/29/18 21:15 94 02/18/18 19:05 97.7 F 87 20 140/74 93 02/18/18 18:50 81 20 02/18/18 16:00 97.3 F 24 H 132/75 92 02/18/18 15:43 93 H 22 02/18/18 12:32 93 H 22 02/18/18 11:46 98.6 F 24 H 138/76 92 02/18/18 11:11 91 02/18/18 11:10 86 L Intake and Output 02/18/18 02/19/18 02/19/18 21:59 05:59 13:59 Intake Total 360 / 360 150 / 150 240 / 240 Output Total 550 / 550 475 / 475 225 / 225 Balance -190 / -190 -325 / -325 Intake: Oral 360 / 360 150 / 150 240 / 240 Output: Void Amount 550 / 550 475 / 475 225 / 225 Other: Meal Dinner Breakfast Percent of Meal Consumed 100% 100% Feeding Ability Independent Urine Appearance Clear Urine Color Bright Yellow Weight 100.924 kg Medical - DS: Data Labs on day of discharge: Labs from last 24 hours 02/19/18 02/19/18 02/19/18 04:10 04:10 04:10 WBC 5.0 RBC 4.63 Hgb 13.9 Hct 41.4 MCV 89.5 MCH 29.9 MCHC 33.5 RDW 13.2 Plt Count 142 MPV 9.4 Gran % 68.2 Lymph % (Auto) 20.1 [place] % (Auto) 11.1 Eos % (Auto) 0.3 Baso % (Auto) 0.3 Gran # 3.4 Lymph # (Auto) 1.0 L [place] # (Auto) 0.6 Eos # (Auto) 0 Baso # (Auto) 0 Sodium 140 Potassium 3.7 Chloride 103 Carbon Dioxide 21 L Anion Gap 16.0 BUN 21 Creatinine 1.0 GFR Calculation 74 Glucose 262 H Hemoglobin A1c 6.3 H Estim Average Glucose 134 Uric Acid 4.5 Calcium 9.0 Phosphorus 3.6 Magnesium 2.0 Total Bilirubin 0.2 Direct Bilirubin < 0.2 GGT 49 AST 36 ALT 28 Alkaline Phosphatase 76 Lactate Dehydrogenase 227 Total Protein 6.9 Albumin 4.0 Globulin 2.9 Albumin/Globulin Ratio 1.4 Triglycerides 135 Preliminary micro results at discharge 02/17/18 21:10 Blood Culture - Preliminary Blood 02/17/18 21:20 Blood Culture - Preliminary Blood Medical - DS: A/P - Patient/Caregiver Discharge Instructions Activity: increase activity as tolerated Diet: Consistent Carbohydrate Prescriptions: predniSONE [Prednisone] 40 mg PO [facility] #1 tab - Follow up Plan Follow up with: Doni Amezcua MD [Primary Care Provider] - Disposition: Home, Self-Care Prognosis: Fair Rehab Potential: Fair Medical - DS: Qual - VTE Deep Vein Thrombosis/Pulmonary Embolism Present on Admission: No
[2018-02-19] MEDS: ATORVASTATIN 20 MG TABLET PO SCH (19:56)
[2018-02-20] MEDS: IPRATROPIUM/ALBUTEROL 3 ML AMPUL.NEB NEB SCH ×2 (03:58→07:24)
[2018-02-20] MEDS: 0.9 % SODIUM CHLORIDE 10 ML SYRINGE IV SCH (04:00)
[2018-02-20] MEDS: INSULIN LISPRO 1 UNIT/0.01 ML UNIT SQ SCH (07:30)
[2018-02-20] MEDS: PANTOPRAZOLE 40 MG TABLET PO SCH (07:30)
[2018-02-20] MEDS: amLODIPine 10 MG TABLET PO SCH (08:46)
[2018-02-20] MEDS: METOPROLOL TARTRATE 50 MG TABLET PO SCH (08:46)
[2018-02-20] MEDS: AZITHROMYCIN 250 MG TABLET PO SCH (08:46)
[2018-02-20] MEDS: OSELTAMIVIR PHOSPHATE 75 MG CAPSULE PO SCH (08:46)
[2018-02-20] MEDS: TRIAMTERENE/HYDROCHLOROTHIAZID 1 TABLET PO SCH (08:46)
[2018-02-20] MEDS: cefTRIAXone 1 GM VIAL IV SCH (08:46)
[2018-02-20] MEDS: DUTASTERIDE 0.5 MG CAPSULE PO SCH (08:46)
[2018-02-20] MEDS: predniSONE 20 MG TABLET PO SCH (08:46)
[2018-02-20] MEDS: POTASSIUM CITRATE 15 MEQ PO SCH (08:57)
[2018-02-20] MEDS: HEPARIN 5,000 UNIT/ML VIAL SQ SCH (08:58)
== END 2018-02-20 09:52 | disposition home or self-care (01) | DRG 193 ==
LOC: ED 19:56 → MEDSUR 02-18 01:00
PROVIDERS: ADMIT Internal Medicine; ATTEND Internal Medicine